=== PATIENT | male | born 1965 | race Caucasian/White ===

== ENCOUNTER → 2025-01-18 | Day surgery (SDC) | payer BC, OTHER ==
[2025-01-12 16:08] LABS: BASOPHILS % 0.5 % (0.0-1.0); EOSINOPHILS % 0.6 % (0.0-6.0); HEMATOCRIT 40.5 % (38.2-49.6); HEMOGLOBIN 14.1 g/dL (14.0-18.0); LYMPHOCYTES # (AUTO) 2.6 (1.0-3.2); LYMPHOCYTES % 39.2 % (18.0-39.1); MEAN CORPUSCULAR HEMOGLOBIN 28.9 pg (28-32); MEAN CORPUSCULAR HGB CONC 34.8 g/dL (31-35); MONOCYTES # (AUTO) 0.5 (0.2-0.8); MONOCYTES % 7.4 % (4.4-11.3); NEUTROPHILS # (AUTO) 3.4 (2.1-6.9); PLATELET COUNT 269 x10e3/uL (140-360); RED BLOOD COUNT 4.88 x10e6/uL (4.3-5.7); RED CELL DISTRIBUTION WIDTH 13.1 % (11.7-14.4); WHITE BLOOD COUNT 6.61 x10e3/uL (4.8-10.8)
[~2025-01-18] MED LIST: ATENOLOL100 MG PO; CREON DR 12,001 EACH PO; FENOFIBRATE160 MG PO; FERROUS SULFAT325 MG PO; GLIMEPIRIDE2 MG PO; GLIPIZIDE5 MG PO; GLUCAGON FOR INJ 1 MG VIAL ONE; HYOSCYAMINE SULFATE 0.5 MG/ML INJ ONE; ICOSAPENT ETHYL1 GM PO; LIDOCAINE HCL 2% LOCAL INJ 5 ML SDV VIAL INJ ONE; LISINOPRIL-HCT1 EAC1 PO; LISINOPRIL10 MG PO; METFORMIN HCL1000 MG PO; METFORMIN HCL500 M2 PO; METFORMIN HCL500 MG PO; MIDAZOLAM HCL 2 MG/2 ML VIAL ONE; NEURONTIN300 MG PO; NEXIUM20 MG PO; NIFEDIPINE ER90 MG PO; PANCREAZE 4,201 EACH PO; PLAQUENIL200 MG PO; PROPOFOL IV EMULSION 10 MG/ML 20 ML VIAL ONE; PROPOFOL IV EMULSION 50 ML IV ONE
[2025-01-18] MEDS: LACTATED RINGER'S 1,000 ML ONE (07:06)
[2025-01-18 08:36] VITALS: TEMP 97.3
[2025-01-18 08:50] VITALS: BP 130/89; PULSE 85; RESP 16; O2SAT 99
== END | disposition home or self-care (01) ==
LOC: OR 05:47
PROVIDERS: ATTEND Internal Medicine Gastroenterology
DX: Z09 Encounter for follow-up examination after completed treatment for conditions other than malignant neoplasm (principal); D12.2 Benign neoplasm of ascending colon; D12.4 Benign neoplasm of descending colon; D12.3 Benign neoplasm of transverse colon; K57.30 Diverticulosis of large intestine without perforation or abscess without bleeding; K64.8 Other hemorrhoids; K21.9 Gastro-esophageal reflux disease without esophagitis; D64.9 Anemia, unspecified; I25.10 Atherosclerotic heart disease of native coronary artery without angina pectoris; I10 Essential (primary) hypertension; I25.2 Old myocardial infarction; E78.5 Hyperlipidemia, unspecified; N20.0 Calculus of kidney; M35.00 Sjogren syndrome, unspecified; Z01.810 Encounter for preprocedural cardiovascular examination; Z01.812 Encounter for preprocedural laboratory examination; Z79.84 Long term (current) use of oral hypoglycemic drugs; Z79.899 Other long term (current) drug therapy; Z87.891 Personal history of nicotine dependence
CPT/HCPCS: 36415; 45385; 85025; 93005; J1610; J1980; J2003; J2250; J2704 ×2; J7121; 45378

== ENCOUNTER 2025-05-05 20:00 | Inpatient (IN) | payer BC ==
[~2025-05-05] VITALS: Ht 182.9 cm; Wt 85.3 kg
[~2025-05-05 20:00] MED LIST changes: -GLUCAGON FOR INJ 1 MG VIAL ONE; -HYOSCYAMINE SULFATE 0.5 MG/ML INJ ONE; -LIDOCAINE HCL 2% LOCAL INJ 5 ML SDV VIAL INJ ONE; -MIDAZOLAM HCL 2 MG/2 ML VIAL ONE; -PROPOFOL IV EMULSION 10 MG/ML 20 ML VIAL ONE; -PROPOFOL IV EMULSION 50 ML IV ONE
[2025-05-05 20:29] LABS: BASOPHILS % 0.4 % (0.0-1.0); EOSINOPHILS % 1.5 % (0.0-6.0); LYMPHOCYTES % 30.8 % (18.0-39.1); MONOCYTES % 7.9 % (4.4-11.3); NEUTROPHILS % 59.3 % (38.7-80.0); RED CELL DISTRIBUTION WIDTH 13.1 % (11.7-14.4)
[2025-05-05] MEDS: KETOROLAC TROMETHAMINE 30 MG/ML VIAL IV STA (20:36)
[2025-05-05] MEDS: ONDANSETRON HCL INJ 2MG/ML 2ML 2 MG/ML VIAL IV STA (20:36)
[2025-05-05] MEDS: SODIUM CHLORIDE 0.9% 1000ML 1,000 ML IV STA (20:36)
[2025-05-05] MEDS: ONDANSETRON HCL 4 MG ORAL DISINTEGRATING TAB PO STA (20:37)
[2025-05-05 20:48] LABS: EST GLOMERULAR FILTRATION RATE 29.0 ML/MIN (>=60)
[2025-05-05 21:02] VITALS: PULSE 88; RESP 16; TEMP 98.4
[2025-05-05 21:16] LABS: LEUKOCYTE ESTERASE ,URINE NEGATIVE (NEGATIVE); PROTEIN,URINE DIPSTICK TRACE (NEGATIVE); URINE UROBILINOGEN 0.2 mg/dL (0.2 - 1)
[2025-05-05 21:27] VITALS: BP 166/99; PULSE 92; RESP 20; TEMP 98.1; O2SAT 98
[2025-05-05 21:35] LABS: EPITHELIAL CELLS,URINE FEW /LPF
[2025-05-05 23:00] VITALS: BP 166/99; PULSE 92; RESP 20; TEMP 98.1; O2SAT 98
[2025-05-06] VITALS (10 sets, daily range): BP systolic 147–165; BP diastolic 95–116; PULSE 66–86; RESP 18–20; TEMP 97.4–98.3; O2SAT 97–100
[2025-05-06] MEDS: Morphine 4mg INJECTION 4 MG/ML INJ IV PRN (02:30)
[2025-05-06] MEDS: ONDANSETRON HCL INJ 2MG/ML 2ML 2 MG/ML VIAL IV PRN (02:31)
[2025-05-06] MEDS ORDERED: LISINOPRIL20 MG PO (02:35)
[2025-05-06] MEDS: SODIUM CHLORIDE 0.9% 1000ML 1,000 ML IV SCH (04:30)
[2025-05-06 05:54] LABS: BASOPHILS % 0.4 % (0.0-1.0); EOSINOPHILS % 2.6 % (0.0-6.0); LYMPHOCYTES % 32.0 % (18.0-39.1); MONOCYTES % 8.5 % (4.4-11.3); NEUTROPHILS % 56.1 % (38.7-80.0); RED CELL DISTRIBUTION WIDTH 13.0 % (11.7-14.4)
[2025-05-06] MEDS: KETOROLAC TROMETHAMINE 30 MG/ML VIAL IV PRN (06:31)
[2025-05-06 06:33] LABS: EST GLOMERULAR FILTRATION RATE 32.0 ML/MIN (>=60)
[2025-05-06] MEDS: DEXTROSE 5%/0.9% SOD CHL 1,000 ML IV SCH (10:11)
[2025-05-06] MEDS ORDERED: ACETAMINOPHEN 1000 MG/100 ML 100 ML IV ONE (11:33)
[2025-05-06] MEDS ORDERED: FENTANYL CITRATE/PF 100MCG/2 ML INJ ONE (11:33)
[2025-05-06] MEDS ORDERED: PROPOFOL IV EMULSION 10 MG/ML 20 ML VIAL ONE (11:33)
[2025-05-06] MEDS ORDERED: LIDOCAINE HCL 2% LOCAL INJ 5 ML SDV VIAL INJ ONE (11:33)
[2025-05-06] MEDS ORDERED: SEVOFLURANE INHAL SOLN 250 ML PEN BTL ONE (11:33)
[2025-05-06] MEDS ORDERED: ONDANSETRON HCL INJ 2MG/ML 2ML 2 MG/ML VIAL ONE (12:08)
[2025-05-06] MEDS ORDERED: FAMOTIDINE 20 MG/2 ML VIAL IV ONE (12:08)
[2025-05-06] MEDS ORDERED: EPHEDRINE SULFATE INJ 50 MG/ML VIAL ONE (12:19)
[2025-05-06] MEDS ORDERED: SIMETHICONE 80 MG CHEW PO PRN (13:45)
[2025-05-06] MEDS ORDERED: MELATONIN 5 MG TABLET PO PRN (13:45)
[2025-05-06] MEDS ORDERED: ALBUTEROL/IPRATROPIUM 3 ML NEB NEB PRN (13:45)
[2025-05-06] MEDS ORDERED: BENZONATATE 100 MG CAP PO PRN (13:45)
[2025-05-06] MEDS ORDERED: LIDOCAINE 4% PATCH TP PRN (13:45)
[2025-05-06] MEDS ORDERED: POTASSIUM CHLORIDE 20 MEQ TAB CR PO PRN (13:45)
[2025-05-06] MEDS ORDERED: DEXTROSE 50% SYRINGE 50 ML IV PRN (13:45)
[2025-05-06] MEDS ORDERED: DOCUSATE SODIUM 100 MG CAP PO PRN (13:45)
[2025-05-06] MEDS ORDERED: DIPHENHYDRAMINE HCL 25 MG CAP PO PRN (13:45)
[2025-05-06] MEDS ORDERED: ACETAMINOPHEN 325 MG TAB PO PRN (13:45)
[2025-05-06] MEDS ORDERED: PHENAZOPYRIDINE HCL 100 MG TAB PO PRN (14:45)
[2025-05-06] MEDS: TAMSULOSIN HCL 0.4 MG CAP PO ONE (18:09)
[2025-05-06] MEDS: HYDROXYCHLOROQUINE SULFATE 200 MG TAB PO SCH (18:09)
[2025-05-06] MEDS: TAMSULOSIN HCL 0.4 MG CAP PO SCH (21:00)
[2025-05-07 03:38] VITALS: BP 150/95; PULSE 72; RESP 18; TEMP 98.2; O2SAT 98
[2025-05-07] MEDS: HYDRALAZINE HCL 20 MG/ML VIAL IV PRN (06:05)
[2025-05-07 06:19] VITALS: PULSE 75; RESP 21; O2SAT 96
[2025-05-07 07:02] LABS: BASOPHILS % 0.6 % (0.0-1.0); EOSINOPHILS % 1.7 % (0.0-6.0); LYMPHOCYTES % 26.8 % (18.0-39.1); MONOCYTES % 7.2 % (4.4-11.3); NEUTROPHILS % 63.5 % (38.7-80.0); RED CELL DISTRIBUTION WIDTH 13.0 % (11.7-14.4)
[2025-05-07 08:00] VITALS: BP 166/90; PULSE 100; RESP 18; TEMP 98.5; O2SAT 100
[2025-05-07 08:35] LABS: EST GLOMERULAR FILTRATION RATE 43.0 ML/MIN (>=60)
[2025-05-07 09:00] VITALS: BP 170/101; PULSE 75; RESP 21; TEMP 98.2; O2SAT 96
[2025-05-07] MEDS ORDERED: ENOXAPARIN SOD INJ 40 MG/0.4 ML SYR SC SCH (09:00)
[2025-05-07] MEDS: NIFEDIPINE CR 30 MG TAB PO SCH (09:05)
[2025-05-07] MEDS: GABAPENTIN 300 MG CAP PO SCH (09:05)
[2025-05-07] MEDS: PANTOPRAZOLE SOD 40 MG TABEC PO SCH (09:05)
[2025-05-07] MEDS: SOLIFENACIN SUCCINATE 5 MG TAB PO SCH (09:05)
[2025-05-07 12:00] VITALS: BP 143/108; PULSE 110; RESP 19; TEMP 98.6; O2SAT 98
== END 2025-05-07 15:15 | disposition home or self-care (01) | DRG 660 ==
LOC: ER 20:05 → ERHOLD 20:32 → MED/SURG2 22:58
PROVIDERS: ADMIT Internal Medicine; ATTEND Internal Medicine
PROC: BT141ZZ Fluoroscopy of Kidneys, Ureters and Bladder using Low Osmolar Contrast (ICD-10-PCS; 2025-05-06)
PROC: 0T768DZ Dilation of Right Ureter with Intraluminal Device, Via Natural or Artificial Opening Endoscopic (ICD-10-PCS; principal; 2025-05-06 11:50)
PROC: 0TF38ZZ Fragmentation in Right Kidney Pelvis, Via Natural or Artificial Opening Endoscopic (ICD-10-PCS; 2025-05-06 11:50)
DX: N13.6 Pyonephrosis (principal); N13.8 Other obstructive and reflux uropathy; N40.1 Benign prostatic hyperplasia with lower urinary tract symptoms; N17.9 Acute kidney failure, unspecified; E11.9 Type 2 diabetes mellitus without complications; I10 Essential (primary) hypertension; R31.29 Other microscopic hematuria; N23 Unspecified renal colic; R35.1 Nocturia; D64.9 Anemia, unspecified; M35.00 Sjogren syndrome, unspecified; N28.1 Cyst of kidney, acquired; Z79.84 Long term (current) use of oral hypoglycemic drugs; Z98.1 Arthrodesis status; Z90.49 Acquired absence of other specified parts of digestive tract; E66.9 Obesity, unspecified; Z68.25 Body mass index [BMI] 25.0-25.9, adult
CPT/HCPCS: 36415; 74176; 74420; 80048; 80053; 81001; 82550; 82948; 83690; 83970; 84484; 84550; 85025; 87086; 93005; 94799; 99284; C1758; C2617; J0360; J1308; J1885; J2003; J2270; J2405; J2470; J2543; J7030; J7042